=== PATIENT | male | born 1990 | race Caucasian/White ===

== ENCOUNTER 2017-09-05 10:18 | Outpatient (CLI) | payer BC ==
--- NOTE | 2017-09-05 11:55 | ULT ---
BILATERAL TESTICULAR ULTRASOUND WITH DOPPLER: (julio scale, color flow, and spectral Doppler) FINDINGS: Left-sided scrotal pain. FINDINGS: The right testis measures 4.5 x 2.4 x 2.6 cm and the left testis measures 4.4 x 2.8 x 3.4 cm. No jhony ticular mass or microlithiasis is seen. Symmetric flow is demonstrated to both testes and epididymi. No hydroceles are identified. The epididymi also have a normal appearance. The right epididymis m easures 1.1 x 0.7 x 0.9 cm and the left epididymis measures 1.1 x 0.7 x 0.6 cm. IMPRESSION: Unremarkable exam. POS: [facility]
== END 2017-09-05 10:19 | disposition home or self-care (01) ==
LOC: SCSULT 10:18
PROVIDERS: ATTEND Family Medicine
DX: N50.812 Left testicular pain (principal)
CPT/HCPCS: 76870; 93976